=== PATIENT | male | born 1995 | race Caucasian/White ===

== ENCOUNTER 2023-11-15 21:09 | Inpatient (IN) | payer BC ==
[~2023-11-15] VITALS: Ht 190.5 cm; Wt 85.3 kg
[2023-11-15 22:06] LABS: BASOPHILS % (AUTO) 0.3 % (0.0-2.0); EOSINOPHILS # (AUTO) 0.3 K/uL (0.0-0.7); EOSINOPHILS % (AUTO) 2.7 % (0.0-6.0); HEMATOCRIT 44 % (39-51); HEMOGLOBIN 14.7 g/dL (13.5-17.5); LYMPHOCYTES # (AUTO) 2.1 K/uL (0.8-4.8); LYMPHOCYTES % (AUTO) 19.8 % (20.0-44.0); MEAN CORPUSCULAR HEMOGLOBIN 29 PG (26.0-33.0); MEAN CORPUSCULAR HGB CONC 33 g/dl (31.0-36.0); MEAN CORPUSCULAR VOLUME 86 fL (80-96); MONOCYTES # (AUTO) 0.8 K/uL (0.1-1.30); MONOCYTES % (AUTO) 7.7 % (2.0-12.0); NEUTROPHILS # (AUTO) 7.4 K/uL (1.8-8.9); NEUTROPHILS % (AUTO) 69.5 % (43.0-81.0); PLATELET COUNT (AUTO) 315 K/uL (150-450); RED BLOOD CELL COUNT(AUTO) 5.09 MIL/uL (4.5-6.0); RED CELL DISTRIBUTION WIDTH 12.6 % (11.5-15.0); WHITE BLOOD COUNT (AUTO) 10.6 K/uL (4.3-11.0)
[2023-11-15] MEDS: IV NS 0.9% 1,000 ML BAG IV ONE (22:06)
[2023-11-15 22:14] LABS: CALCIUM, SERUM 9.3 mg/dL (8.5-10.1); CARBON DIOXIDE 28 mmol/L (21-32); CHLORIDE 103 mmol/L (98-107); CREATININE 0.8 mg/dL (0.6-1.3); GLUCOSE 110 mg/dL (74-106); POTASSIUM 3.7 mmol/L (3.5-5.1); SODIUM SERUM 137 mmol/L (136-145); UREA NITROGEN, BLOOD 13 mg/dL (7-18)
[2023-11-15 22:20] LABS: ALANINE AMINOTRANSFERASE 28 U/L (12-78); ALBUMIN 4.5 g/dL (3.4-5.0); ALKALINE PHOSPHATASE 79 U/L (46-116); ASPARTATE AMINOTRANSFERASE 15 U/L (15-37); BILIRUBIN,DIRECT 0.1 mg/dL (0.0-0.2); BILIRUBIN,TOTAL 0.4 mg/dL (0.2-1.0); TOTAL PROTEIN, SERUM 8.1 g/dL (6.4-8.2)
[2023-11-15 22:27] LABS: INR 0.94 (0.91-1.10); PARTIAL THROMBOPLASTIN TIME 23.4 SEC (24.3-34.3); PROTHROMBIN TIME 9.7 SECS (9.2-11.1)
[2023-11-15 22:58] LABS: AMPHETAMINE, URINE NEGATIVE (NEGATIVE); BARBITURATE, URINE NEGATIVE (NEGATIVE); BENZODIAZEPINE, URINE NEGATIVE (NEGATIVE); COCCAINE, URINE NEGATIVE (NEGATIVE); OPIATE, URINE NEGATIVE (NEGATIVE); PHENCYCLIDINE SCREEN,URINE NEGATIVE (NEGATIVE)
[2023-11-15 22:59] LABS: CANNABINOID, URINE POSITIVE (NEGATIVE)
[2023-11-16] MEDS ORDERED: ONDANSETRON HCL/PF 4 MG/2 ML VIAL IVP PRN (00:30)
[2023-11-16] MEDS ORDERED: MAGNESIUM HYDROXIDE 30 ML UDC PO PRN (00:30)
[2023-11-16] MEDS ORDERED: MAG HYDROX/AL HYDROX/SIMETH 30 ML UDC PO PRN (00:30)
[2023-11-16] MEDS ORDERED: ZOLPIDEM TARTRATE 5 MG TABLET PO PRN (00:30)
[2023-11-16] MEDS ORDERED: ACETAMINOPHEN 325 MG TABLET PO PRN (00:30)
[2023-11-16] MEDS ORDERED: Z GUARD REMEDY 4 OZ OINT TP PRN (00:30)
[2023-11-16 02:10] VITALS: BP 139/84; TEMP 97.9; O2SAT 99
[2023-11-16 04:00] VITALS: BP 127/84; TEMP 97.8; O2SAT 97
[2023-11-16 07:14] LABS: BASOPHILS # (AUTO) 0.1 K/uL (0.0-0.2); BASOPHILS % (AUTO) 0.7 % (0.0-2.0); EOSINOPHILS # (AUTO) 0.4 K/uL (0.0-0.7); EOSINOPHILS % (AUTO) 3.8 % (0.0-6.0); HEMATOCRIT 39 % (39-51); HEMOGLOBIN 13.1 g/dL (13.5-17.5); LYMPHOCYTES # (AUTO) 3.1 K/uL (0.8-4.8); LYMPHOCYTES % (AUTO) 33.4 % (20.0-44.0); MEAN CORPUSCULAR HEMOGLOBIN 29 PG (26.0-33.0); MEAN CORPUSCULAR HGB CONC 34 g/dl (31.0-36.0); MEAN CORPUSCULAR VOLUME 87 fL (80-96); MONOCYTES # (AUTO) 0.8 K/uL (0.1-1.30); MONOCYTES % (AUTO) 8.1 % (2.0-12.0); PLATELET COUNT (AUTO) 249 K/uL (150-450); RED CELL DISTRIBUTION WIDTH 12.7 % (11.5-15.0); WHITE BLOOD COUNT (AUTO) 9.3 K/uL (4.3-11.0)
[2023-11-16] MEDS ORDERED: ALBU90AE INH (07:24)
[2023-11-16] MEDS ORDERED: ADVAIR HFA IH (07:32)
[2023-11-16] MEDS ORDERED: DIPH25TA25 PO (07:32)
[2023-11-16 07:35] LABS: ALBUMIN 3.3 g/dL (3.4-5.0); BILIRUBIN,DIRECT 0.1 mg/dL (0.0-0.2); BILIRUBIN,TOTAL 0.3 mg/dL (0.2-1.0); CALCIUM, SERUM 8.4 mg/dL (8.5-10.1); CREATININE 0.7 mg/dL (0.6-1.3); MAGNESIUM 2.2 mg/dL (1.8-2.4); PHOSPHORUS 4.5 mg/dL (2.5-4.9); POTASSIUM 3.7 mmol/L (3.5-5.1); TOTAL PROTEIN, SERUM 6.7 g/dL (6.4-8.2)
[2023-11-16] MEDS: PANTOPRAZOLE 40 MG TABLET.DR PO SCH (07:36)
[2023-11-16 07:39] LABS: THYROID STIMULATING HORMONE 1.97 uIU/mL (0.358-3.74)
[2023-11-16 08:00] VITALS: BP 137/63; TEMP 97.7; O2SAT 97
[2023-11-16 08:13] LABS: CHOLESTEROL 158 mg/dL (<200); HDL CHOLESTEROL 37 mg/dL (40-60); LDL 88 mg/dL (0-99); TRIGLYCERIDES 297 mg/dL (30-150)
[2023-11-16] MEDS: IV NS 0.9% 1,000 ML BAG IV PRN (11:38)
[2023-11-16 12:00] VITALS: BP 140/84; TEMP 97.8; O2SAT 98
== END 2023-11-16 16:16 | disposition home or self-care (01) | DRG 156 ==
LOC: ER 21:23 → TELE1 11-16 01:49
PROVIDERS: ADMIT Nurse Practitioner Family; ATTEND Nurse Practitioner Acute Care
DX: J34.89 Other specified disorders of nose and nasal sinuses (principal); R51.9 Headache, unspecified; R73.9 Hyperglycemia, unspecified; F12.20 Cannabis dependence, uncomplicated; E66.3 Overweight; Z68.23 Body mass index [BMI] 23.0-23.9, adult; J45.909 Unspecified asthma, uncomplicated; Q07.00 Arnold-Chiari syndrome without spina bifida or hydrocephalus; Z79.51 Long term (current) use of inhaled steroids
CPT/HCPCS: 36415; 70450-TC; 71045-TC; 80048-TC; 80061-TC; 80076-TC; 82607-TC; 82962-TC; 83735-TC; 83921; 84100-TC; 84443-TC; 84484-TC; 85025-TC; 85730-TC; 86850-TC; 87081-TC; 93307-TC; 93880-TC; 97116-TC; 97530-TC; A4223; G0378; G0480; J7030